=== PATIENT | male | born 1945 | race Caucasian/White ===

== ENCOUNTER 2023-05-24 03:26 | Outpatient (CLI) | payer MEDICARE, SELFPAY ==
[2023-05-24 13:46] LABS: Absolute Basophil Count 0.01 10^3/uL (0.0-0.2); Absolute Eosinophil Count 0.02 10^3/uL (0.0-0.7); Basophils % 1.5; HGB 9.9 g/dL (13.5-17.5); Lymphocytes % 74.6; MCH 32.5 pg (27.0-33.0); MCHC 36.7 % (32.0-36.0); MCV 89 fL (80-95); MPV 9.3 fL (8.0-11.0); Monocytes % 14.9; Platelet Count 103 10^3/uL (130-400); RBC 3.05 10^6/uL (4.36-5.78); RDW 12.5 % (11.8-14.1)
[2023-05-24 14:09] LABS: Absolute Neutrophil Count 0.04 10^3/uL (1.2-6.7)
[2023-05-24 14:10] LABS: Diff Comment Diff Reviewed; RBC Morphology Normal; WBC 0.67 10^3/uL (4.4-10.8)
[2023-05-24 14:15] LABS: ALT 26 U/L (16-63); AST 20 U/L (15-37); Albumin 3.3 g/dL (3.4-5.0); Alkaline Phosphatase 102 U/L (46-116); Anion Gap 4.6 mmol/L (3-11); BUN 17 mg/dL (7-18); Bilirubin, Total 1.4 mg/dL (0.2-1.0); CO2 34.4 mmol/L (21.0-32.0); CREATININE 0.8 mg/dL (0.70-1.30); Calcium 9.4 mg/dL (8.5-10.1); Chloride 94 mmol/L (98-107); Estimated GFR 91.72 (mL/min/1.73m2); FREE T4 1.44 ng/dL (0.76-1.46); Glucose 110 mg/dL (74-106); Magnesium 1.6 mg/dL (1.8-2.4); Potassium 4.2 mmol/L (3.5-5.1); Sodium 133 mmol/L (136-145); TSH 0.84 uIU/mL (0.36-3.74); Total Protein 6.7 g/dL (6.4-8.2)
== END 2023-05-24 03:27 | disposition home or self-care (01) ==
PROVIDERS: Visit Provider Internal Medicine Medical Oncology
DX: Z79.899 Other long term (current) drug therapy (principal); C34.90 Malignant neoplasm of unspecified part of unspecified bronchus or lung
CPT/HCPCS: 36415; 80053; 83735; 84439; 84443; 85025

== ENCOUNTER 2023-06-02 01:59 | Outpatient (CLI) | payer MEDICARE, SELFPAY ==
[2023-06-02 08:04] LABS: Abs Immature Grans 0.15 10^3/uL (0.0-0.06); Absolute Basophil Count 0.03 10^3/uL (0.0-0.2); Absolute Eosinophil Count 0.02 10^3/uL (0.0-0.7); Absolute Lymphocyte Count 0.69 10^3/uL (1.2-3.4); Absolute Monocyte Count 0.49 10^3/uL (0.1-0.8); Absolute Neutrophil Count 2.18 10^3/uL (1.2-6.7); Basophils % 0.8; Eosinophils % 0.6; HCT 28.9 % (40.0-50.0); HGB 10.3 g/dL (13.5-17.5); Immature Grans % 4.2; Lymphocytes % 19.4; MCH 32.6 pg (27.0-33.0); MCHC 35.6 % (32.0-36.0); MCV 92 fL (80-95); MPV 7.8 fL (8.0-11.0); Monocytes % 13.8; Neutrophils % 61.2; Platelet Count 416 10^3/uL (130-400); RBC 3.16 10^6/uL (4.36-5.78); RDW 15.1 % (11.8-14.1); RDW-SD 43.3 fL; WBC 3.56 10^3/uL (4.4-10.8)
[2023-06-02 08:35] LABS: ALT 26 U/L (16-63); AST 19 U/L (15-37); Albumin 3.3 g/dL (3.4-5.0); Alkaline Phosphatase 145 U/L (46-116); BUN 5 mg/dL (7-18); Bilirubin, Total 0.7 mg/dL (0.2-1.0); CREATININE 0.7 mg/dL (0.70-1.30); Calcium 9.3 mg/dL (8.5-10.1); Chloride 94 mmol/L (98-107); Estimated GFR 95.49 (mL/min/1.73m2); FREE T4 1.24 ng/dL (0.76-1.46); Glucose 108 mg/dL (74-106); Magnesium 1.6 mg/dL (1.8-2.4); Potassium 4.2 mmol/L (3.5-5.1); Sodium 132 mmol/L (136-145); Total Protein 6.9 g/dL (6.4-8.2)
== END 2023-06-02 02:00 | disposition home or self-care (01) ==
LOC: LBO 01:59
PROVIDERS: Visit Provider Internal Medicine Medical Oncology
DX: Z79.899 Other long term (current) drug therapy (principal); C34.90 Malignant neoplasm of unspecified part of unspecified bronchus or lung
CPT/HCPCS: 36415; 80053; 83735; 84439; 84443; 85025

== ENCOUNTER → 2023-06-25 00:23 | Outpatient (CLI) | payer OTHER, SELFPAY ==
--- NOTE | 2023-06-25 | DI.CT_ITS ---
Exam(s) CT CHEST W EXAM: CT CHEST W CLINICAL HISTORY: [place] AUTH# [id number], LUNG CANCER C34.90 AND LYMPH NODES C77.0 ASSESS TECHNIQUE: Imaging Protocol: Axial computed tomography images with coronal and sagittal reformatted images were created and reviewed CONTRAST MATERIAL: Intravenous: Omnipaque 350Contrast volume:70 mL. COMPARISON: No exams were available for comparison FINDINGS: Tracheobronchial tree: Patent where visualized. Pulmonary parenchyma: There is a 1.6 cm opacity in the periphery of the left upper lobe. There is a 7 mm peripheral left upper lobe pulmonary nodule. There is a moderate left pleural effusion and left basilar infiltrate which may represent atelectasis or pneumonia. No architectural distortion. Mediastinum and Jennifer: There is mediastinal adenopathy present there is extensive soft tissue seen in the anterior and superior mediastinum encasing and narrowing the left brachiocephalic vein. Left hil ar adenopathy is present. The esophagus is unremarkable. Thyroid gland: There is a 9 mm nodule in the lower pole of the right lobe of the thyroid gland. No f ollow-up is recommended. Pleura: There is no right pleural effusion. No pneumothorax is present. Heart: Cardiomegaly. Status post CABG. No pericardial effusion. Aorta: Thoracic aorta non-dilated. Atherosclerosis. No evidence of dissection. Pulmonary arteries: Due to the bolus timing, pulmonary arteries are insufficiently opacified for eval uation of pulmonary emboli. Upper abdomen: Unremarkable. Lymph nodes: Within normal limits. Bones: Within normal limits for the patient's age. Soft tissues: Unremarkable. IMPRESSION: 1. Left upper lobe nodules. Findings may represent primary or metastatic disease. 2. Moderate left pleural effusion and subjacent infiltrate which may represent atelectasis or pneumon ia. 3. Extensive mediastinal and left hilar adenopathy 4. If there are prior studies for comparison, they may be submitted and an addendum will be issued at that time. RADIATION DOSE DELIVERED: Total DLP DATA REPOSITORY: All CT scans at this facility are submitted to the National Radiology Data Registry (NRDR) Dose Index Registry (DIR) with the [employer] ([employer]). RADIATION OPTIMIZATION: All CT scans at this facility use at least one of these dose optimization te chniques: automated exposure control; mA and/or kV adjustment per patient size (includes targeted exa ms where dose is matched to clinical indication); or iterative reconstruction.
[2023-06-25] MEDS: Omnipaque 350 MG/ML 500 ML BTL-Imaging package 100 ML IJ (11:10)
[2023-06-25] MEDS: Normal Saline Flush 10 ML SYR IVP (11:11)
[2023-06-25] MEDS: Normal Saline - Diluent 50 ML VIAL IJ (11:11)
== END ==
PROVIDERS: Visit Provider Nurse Practitioner Family
DX: C34.12 Malignant neoplasm of upper lobe, left bronchus or lung (principal)
CPT/HCPCS: 71260

== ENCOUNTER 2023-06-28 04:09 | Outpatient (CLI) | payer OTHER, SELFPAY ==
[2023-06-28 08:29] LABS: Abs Immature Grans 0.07 10^3/uL (0.0-0.06); Absolute Basophil Count 0.08 10^3/uL (0.0-0.2); Absolute Eosinophil Count 0.02 10^3/uL (0.0-0.7); Absolute Lymphocyte Count 0.69 10^3/uL (1.2-3.4); Absolute Monocyte Count 0.63 10^3/uL (0.1-0.8); Absolute Neutrophil Count 6.86 10^3/uL (1.2-6.7); Eosinophils % 0.2; HGB 9.6 g/dL (13.5-17.5); Immature Grans % 0.8; Lymphocytes % 8.3; MCH 33.6 pg (27.0-33.0); MCHC 34.3 % (32.0-36.0); MCV 98 fL (80-95); MPV 8.9 fL (8.0-11.0); Monocytes % 7.5; Neutrophils % 82.2; Platelet Count 263 10^3/uL (130-400); RBC 2.86 10^6/uL (4.36-5.78); RDW 17.8 % (11.8-14.1); RDW-SD 62.7 fL; WBC 8.35 10^3/uL (4.4-10.8)
[2023-06-28 09:02] LABS: ALT 12 U/L (16-63); AST 15 U/L (15-37); Albumin 3.2 g/dL (3.4-5.0); Alkaline Phosphatase 115 U/L (46-116); BUN 11 mg/dL (7-18); Bilirubin, Total 0.8 mg/dL (0.2-1.0); CREATININE 0.8 mg/dL (0.70-1.30); Chloride 98 mmol/L (98-107); Estimated GFR 91.72 (mL/min/1.73m2); FREE T4 1.04 ng/dL (0.76-1.46); Glucose 108 mg/dL (74-106); Magnesium 1.4 mg/dL (1.8-2.4); Potassium 3.8 mmol/L (3.5-5.1); Sodium 135 mmol/L (136-145); TSH 1.78 uIU/mL (0.36-3.74); Total Protein 6.2 g/dL (6.4-8.2)
== END 2023-06-28 04:10 | disposition home or self-care (01) ==
LOC: LBO 04:10
PROVIDERS: Visit Provider Internal Medicine Medical Oncology
DX: C34.91 Malignant neoplasm of unspecified part of right bronchus or lung (principal)
CPT/HCPCS: 36415; 80053; 83735; 84439; 84443; 85025

== ENCOUNTER 2023-07-21 01:42 | Outpatient (CLI) | payer OTHER, SELFPAY ==
[2023-07-21 07:25] LABS: Abs Immature Grans 0.07 10^3/uL (0.0-0.06); Absolute Basophil Count 0.05 10^3/uL (0.0-0.2); Absolute Eosinophil Count 0.04 10^3/uL (0.0-0.7); Absolute Lymphocyte Count 0.83 10^3/uL (1.2-3.4); Absolute Monocyte Count 0.52 10^3/uL (0.1-0.8); Absolute Neutrophil Count 7.19 10^3/uL (1.2-6.7); Basophils % 0.6; Eosinophils % 0.5; HCT 32.1 % (40.0-50.0); Immature Grans % 0.8; Lymphocytes % 9.5; MCH 34.9 pg (27.0-33.0); MCHC 34.3 % (32.0-36.0); MCV 102 fL (80-95); MPV 8.8 fL (8.0-11.0); Neutrophils % 82.6; Platelet Count 279 10^3/uL (130-400); RBC 3.15 10^6/uL (4.36-5.78); RDW-SD 60.4 fL
[2023-07-21 07:52] LABS: ALT 13 U/L (16-63); AST 15 U/L (15-37); Albumin 3.7 g/dL (3.4-5.0); Alkaline Phosphatase 132 U/L (46-116); Anion Gap 4.3 mmol/L (3-11); BUN 10 mg/dL (7-18); Bilirubin, Total 0.9 mg/dL (0.2-1.0); CO2 33.7 mmol/L (21.0-32.0); CREATININE 0.9 mg/dL (0.70-1.30); Calcium 9.2 mg/dL (8.5-10.1); Chloride 95 mmol/L (98-107); Estimated GFR 88.51 (mL/min/1.73m2); FREE T4 1.23 ng/dL (0.76-1.46); Glucose 118 mg/dL (74-106); Magnesium 1.6 mg/dL (1.8-2.4); Potassium 4.7 mmol/L (3.5-5.1); Sodium 133 mmol/L (136-145); TSH 0.93 uIU/mL (0.36-3.74); Total Protein 6.9 g/dL (6.4-8.2)
== END 2023-07-21 01:43 | disposition home or self-care (01) ==
LOC: LBO 01:43
PROVIDERS: Visit Provider Internal Medicine Medical Oncology
DX: C34.12 Malignant neoplasm of upper lobe, left bronchus or lung (principal)
CPT/HCPCS: 36415; 80053; 83735; 84439; 84443; 85025

== ENCOUNTER 2023-08-09 05:23 | Outpatient (CLI) | payer OTHER, SELFPAY ==
[2023-08-09 09:09] LABS: Abs Immature Grans 0.31 10^3/uL (0.0-0.06); Absolute Basophil Count 0.05 10^3/uL (0.0-0.2); Absolute Eosinophil Count 0.04 10^3/uL (0.0-0.7); Absolute Lymphocyte Count 0.82 10^3/uL (1.2-3.4); Absolute Monocyte Count 0.61 10^3/uL (0.1-0.8); Absolute Neutrophil Count 8.52 10^3/uL (1.2-6.7); Basophils % 0.5; Eosinophils % 0.4; HCT 29.8 % (40.0-50.0); HGB 10.2 g/dL (13.5-17.5); Lymphocytes % 7.9; MCH 34.8 pg (27.0-33.0); MCHC 34.2 % (32.0-36.0); MCV 102 fL (80-95); MPV 8.8 fL (8.0-11.0); Monocytes % 5.9; Neutrophils % 82.3; Nucleated RBC 0.2 % (0.0-0.3); Platelet Count 209 10^3/uL (130-400); RBC 2.93 10^6/uL (4.36-5.78); RDW-SD 55.5 fL; WBC 10.35 10^3/uL (4.4-10.8)
[2023-08-09 09:33] LABS: ALT 15 U/L (16-63); AST 16 U/L (15-37); Albumin 3.8 g/dL (3.4-5.0); Alkaline Phosphatase 133 U/L (46-116); Anion Gap 4.3 mmol/L (3-11); BUN 12 mg/dL (7-18); Bilirubin, Total 0.8 mg/dL (0.2-1.0); CO2 33.7 mmol/L (21.0-32.0); CREATININE 0.9 mg/dL (0.70-1.30); Calcium 9.5 mg/dL (8.5-10.1); Chloride 95 mmol/L (98-107); Estimated GFR 88.51 (mL/min/1.73m2); FREE T4 1.27 ng/dL (0.76-1.46); Glucose 99 mg/dL (74-106); Magnesium 1.6 mg/dL (1.8-2.4); Potassium 4.2 mmol/L (3.5-5.1); Sodium 133 mmol/L (136-145); Total Protein 6.7 g/dL (6.4-8.2)
== END 2023-08-09 05:24 | disposition home or self-care (01) ==
PROVIDERS: Visit Provider Internal Medicine Medical Oncology
DX: C34.91 Malignant neoplasm of unspecified part of right bronchus or lung (principal)
CPT/HCPCS: 36415; 80053; 83735; 84439; 84443; 85025

== ENCOUNTER 2023-08-30 05:20 | Outpatient (CLI) | payer OTHER, SELFPAY ==
[2023-08-30 08:19] LABS: Abs Immature Grans 0.27 10^3/uL (0.0-0.06); Absolute Basophil Count 0.09 10^3/uL (0.0-0.2); Absolute Eosinophil Count 0.05 10^3/uL (0.0-0.7); Absolute Monocyte Count 0.78 10^3/uL (0.1-0.8); Basophils % 0.7; Eosinophils % 0.4; HCT 30.7 % (40.0-50.0); HGB 10.6 g/dL (13.5-17.5); Lymphocytes % 7.4; MCHC 34.5 % (32.0-36.0); MCV 101 fL (80-95); Monocytes % 5.8; Neutrophils % 83.7; Platelet Count 208 10^3/uL (130-400); RBC 3.03 10^6/uL (4.36-5.78); RDW 14.7 % (11.8-14.1); RDW-SD 54.4 fL; WBC 13.51 10^3/uL (4.4-10.8)
[2023-08-30 08:20] LABS: Absolute Neutrophil Count 11.31 10^3/uL (1.2-6.7)
[2023-08-30 08:38] LABS: ALT 17 U/L (16-63); AST 19 U/L (15-37); Albumin 3.5 g/dL (3.4-5.0); Alkaline Phosphatase 121 U/L (46-116); Anion Gap 5.9 mmol/L (3-11); BUN 10 mg/dL (7-18); Bilirubin, Total 0.7 mg/dL (0.2-1.0); CO2 34.1 mmol/L (21.0-32.0); CREATININE 0.9 mg/dL (0.70-1.30); Calcium 9.1 mg/dL (8.5-10.1); Chloride 96 mmol/L (98-107); Estimated GFR 88.51 (mL/min/1.73m2); FREE T4 1.19 ng/dL (0.76-1.46); Glucose 102 mg/dL (74-106); Magnesium 1.4 mg/dL (1.8-2.4); Potassium 4.2 mmol/L (3.5-5.1); Sodium 136 mmol/L (136-145); TSH 1.05 uIU/mL (0.36-3.74); Total Protein 6.7 g/dL (6.4-8.2)
== END 2023-08-30 05:21 | disposition home or self-care (01) ==
LOC: LBO 05:20
PROVIDERS: Visit Provider Internal Medicine Medical Oncology
DX: C34.91 Malignant neoplasm of unspecified part of right bronchus or lung (principal)
CPT/HCPCS: 36415; 80053; 83735; 84439; 84443; 85025

== ENCOUNTER 2023-09-20 04:15 | Outpatient (CLI) | payer OTHER, SELFPAY ==
[2023-09-20 08:37] LABS: Absolute Basophil Count 0.05 10^3/uL (0.0-0.2); Absolute Eosinophil Count 0.04 10^3/uL (0.0-0.7); Absolute Lymphocyte Count 0.89 10^3/uL (1.2-3.4); Absolute Monocyte Count 0.63 10^3/uL (0.1-0.8); Absolute Neutrophil Count 7.12 10^3/uL (1.2-6.7); Basophils % 0.6; Eosinophils % 0.5; HCT 30.8 % (40.0-50.0); HGB 10.6 g/dL (13.5-17.5); Immature Grans % 1.1; Lymphocytes % 10.1; MCH 34.5 pg (27.0-33.0); MCHC 34.4 % (32.0-36.0); MCV 100 fL (80-95); MPV 8.4 fL (8.0-11.0); Monocytes % 7.1; Neutrophils % 80.6; Platelet Count 238 10^3/uL (130-400); RBC 3.07 10^6/uL (4.36-5.78); RDW 14.9 % (11.8-14.1); RDW-SD 54.7 fL; WBC 8.83 10^3/uL (4.4-10.8)
[2023-09-20 09:22] LABS: ALT 15 U/L (16-63); AST 18 U/L (15-37); Albumin 3.7 g/dL (3.4-5.0); Alkaline Phosphatase 131 U/L (46-116); Anion Gap 5.2 mmol/L (3-11); BUN 11 mg/dL (7-18); Bilirubin, Total 0.8 mg/dL (0.2-1.0); CO2 32.8 mmol/L (21.0-32.0); Calcium 9.2 mg/dL (8.5-10.1); Chloride 95 mmol/L (98-107); FREE T4 1.16 ng/dL (0.76-1.46); Glucose 112 mg/dL (74-106); Magnesium 1.6 mg/dL (1.8-2.4); Sodium 133 mmol/L (136-145); TSH 0.98 uIU/mL (0.36-3.74); Total Protein 6.8 g/dL (6.4-8.2)
== END 2023-09-20 04:16 | disposition home or self-care (01) ==
LOC: LBO 04:15
PROVIDERS: Visit Provider Internal Medicine Medical Oncology
DX: C34.91 Malignant neoplasm of unspecified part of right bronchus or lung (principal)
CPT/HCPCS: 36415; 80053; 83735; 84439; 84443; 85025

== ENCOUNTER 2023-10-11 05:30 | Outpatient (CLI) | payer OTHER, SELFPAY ==
[2023-10-11 08:02] LABS: Abs Immature Grans 0.03 10^3/uL (0.0-0.06); Absolute Basophil Count 0.04 10^3/uL (0.0-0.2); Absolute Eosinophil Count 0.24 10^3/uL (0.0-0.7); Absolute Lymphocyte Count 0.67 10^3/uL (1.2-3.4); Absolute Monocyte Count 0.66 10^3/uL (0.1-0.8); Basophils % 0.4; Eosinophils % 2.6; HCT 31.3 % (40.0-50.0); HGB 11.1 g/dL (13.5-17.5); Immature Grans % 0.3; Lymphocytes % 7.3; MCH 35.5 pg (27.0-33.0); MCHC 35.5 % (32.0-36.0); MCV 100 fL (80-95); MPV 8.5 fL (8.0-11.0); Monocytes % 7.1; Neutrophils % 82.3; Platelet Count 167 10^3/uL (130-400); RBC 3.13 10^6/uL (4.36-5.78); RDW 13.2 % (11.8-14.1); RDW-SD 48.3 fL; WBC 9.24 10^3/uL (4.4-10.8)
[2023-10-11 08:27] LABS: ALT 14 U/L (16-63); AST 23 U/L (15-37); Albumin 3.5 g/dL (3.4-5.0); Alkaline Phosphatase 82 U/L (46-116); Anion Gap 2.5 mmol/L (3-11); BUN 11 mg/dL (7-18); CO2 34.5 mmol/L (21.0-32.0); CREATININE 0.9 mg/dL (0.70-1.30); Calcium 9.2 mg/dL (8.5-10.1); Chloride 94 mmol/L (98-107); Estimated GFR 88.51 (mL/min/1.73m2); FREE T4 1.08 ng/dL (0.76-1.46); Glucose 116 mg/dL (74-106); Magnesium 1.5 mg/dL (1.8-2.4); Potassium 4.3 mmol/L (3.5-5.1); Sodium 131 mmol/L (136-145); TSH 1.08 uIU/Ml (0.36-3.74); Total Protein 6.7 g/dL (6.4-8.2)
== END 2023-10-11 05:31 | disposition home or self-care (01) ==
LOC: LBO 05:30
PROVIDERS: Visit Provider Internal Medicine Medical Oncology
DX: R23.4 Changes in skin texture (principal)
CPT/HCPCS: 36415; 80053; 83735; 84439; 84443; 85025

== ENCOUNTER 2023-11-01 03:53 | Outpatient (CLI) | payer OTHER, SELFPAY ==
[2023-11-01 08:29] LABS: Abs Immature Grans 0.05 10^3/uL (0.0-0.06); Absolute Basophil Count 0.05 10^3/uL (0.0-0.2); Absolute Eosinophil Count 0.07 10^3/uL (0.0-0.7); Absolute Lymphocyte Count 0.56 10^3/uL (1.2-3.4); Absolute Monocyte Count 0.79 10^3/uL (0.1-0.8); Absolute Neutrophil Count 7.26 10^3/uL (1.2-6.7); Basophils % 0.6; Eosinophils % 0.8; HCT 28.9 % (40.0-50.0); HGB 10.3 g/dL (13.5-17.5); Immature Grans % 0.6; Lymphocytes % 6.4; MCH 34.7 pg (27.0-33.0); MCHC 35.6 % (32.0-36.0); MCV 97 fL (80-95); MPV 8.4 fL (8.0-11.0); Neutrophils % 82.6; Platelet Count 261 10^3/uL (130-400); RBC 2.97 10^6/uL (4.36-5.78); RDW 14.8 % (11.8-14.1); RDW-SD 50.3 fL; WBC 8.78 10^3/uL (4.4-10.8)
[2023-11-01 08:49] LABS: ALT 16 U/L (16-63); AST 29 U/L (15-37); Albumin 3.2 g/dL (3.4-5.0); Alkaline Phosphatase 94 U/L (46-116); Anion Gap 2.1 mmol/L (3-11); BUN 16 mg/dL (7-18); CO2 37.9 mmol/L (21.0-32.0); CREATININE 0.9 mg/dL (0.70-1.30); Calcium 10.1 mg/dL (8.5-10.1); Chloride 89 mmol/L (98-107); Estimated GFR 88.51 (mL/min/1.73m2); FREE T4 1.45 ng/dL (0.76-1.46); Glucose 128 mg/dL (74-106); Magnesium 1.5 mg/dL (1.8-2.4); Potassium 3.8 mmol/L (3.5-5.1); Sodium 129 mmol/L (136-145); TSH 1.54 uIU/Ml (0.36-3.74); Total Protein 6.6 g/dL (6.4-8.2)
== END 2023-11-01 03:54 | disposition home or self-care (01) ==
LOC: LBO 03:54
PROVIDERS: Visit Provider Internal Medicine Medical Oncology
DX: C34.91 Malignant neoplasm of unspecified part of right bronchus or lung (principal)
CPT/HCPCS: 36415; 80053; 83735; 84439; 84443; 85025